=== PATIENT | male | born 1940 | race Caucasian/White ===

== ENCOUNTER 2018-10-14 10:23 | Day surgery (SDC) | payer MEDICARE, OTHER ==
[~2018-10-14 10:23] MED LIST: SEVOFLURANE 15 MIN
[2018-10-14] MEDS ORDERED: LACTATED RINGER'S 1,000 ML IV (12:30)
[2018-10-14 12:34] LABS: ADD MAN DIFF? NO
[2018-10-14 12:37] LABS: WHITE BLOOD COUNT 6.6 10^3/ul (4.8-10.8)
[2018-10-14 12:37] LABS: BASOPHIL # 0.1 10^3/ul (0.0-0.1); BASOPHILS % 0.8 % (0.0-2.0); EOSINOPHILS # 0.2 10^3/ul (0.0-0.5); EOSINOPHILS % 2.3 % (0.0-7.0); HEMOGLOBIN 14.7 g/dl (14.0-18.0); LYMPHOCYTES # 1.9 10^3/ul (0.8-2.9); LYMPHOCYTES % 28.3 % (15.0-51.0); MEAN CORPUSCULAR HEMOGLOBIN 29.9 pg (29.0-33.0); MEAN CORPUSCULAR HGB CONC 33.4 g/dl (32.0-37.0); MEAN CORPUSCULAR VOLUME 89.4 fl (82.0-101.0); MEAN PLATELET VOLUME 9.7 fl (7.4-10.4); MONOCYTE # 0.6 10^3/ul (0.3-0.9); MONOCYTES % 8.4 % (0.0-11.0); PLATELET COUNT 197 10^3/UL (140-415); RED BLOOD COUNT 4.92 10^6/ul (4.70-6.10)
[2018-10-14] MEDS: CIPROFLOXACIN 400MG/D5W 200 ML IVPB (12:48)
[2018-10-14] MEDS ORDERED: MIDAZOLAM 1 MG/ML 2 ML INJ (12:52)
[2018-10-14] MEDS ORDERED: FENTAnyl 50 MCG/ML VIAL (12:52)
[2018-10-14 12:57] LABS: INR 1.06; PARTIAL THROMBOPLASTIN TIME 29.2 Sec (23.0-35.0); PROTIME 13.9 Sec (11.9-14.9); PT RATIO 1.1
[2018-10-14 12:59] LABS: ANION GAP 5 (5-13); BLOOD UREA NITROGEN 16 mg/dl (7-20); CALCIUM 9.2 mg/dl (8.4-10.2); CARBON DIOXIDE 28 mmol/L (21-31); CHLORIDE 110 mmol/L (97-110); CREATININE 0.67 mg/dl (0.61-1.24); GLUCOSE 91 mg/dl (70-220); POTASSIUM 4.2 mmol/L (3.5-5.1); SODIUM 143 mmol/L (135-144)
[2018-10-14] MEDS ORDERED: CIPROFLOXACIN 400MG/D5W 200 ML (13:40)
[2018-10-14] MEDS ORDERED: ETOMIDATE 20 MG INJ (13:40)
[2018-10-14] MEDS ORDERED: LIDOCAINE 2% (SDV) 5 ML INJ (13:40)
[2018-10-14] MEDS ORDERED: LABETALOL HCL 20MG INJ IV (14:00)
[2018-10-14] MEDS ORDERED: HYDROCODONE/APAP (5/325) TAB PO (14:00)
[2018-10-14] MEDS ORDERED: ONDANSETRON 4 MG INJ IV (14:00)
[2018-10-14] MEDS ORDERED: hydrALAzine 20 MG INJ IV (14:00)
[2018-10-14] MEDS ORDERED: MEPERIDINE 25 MG INJ IV (14:00)
[2018-10-14] MEDS ORDERED: DIPHENHYDRAMINE 50 MG INJ IV (14:00)
[2018-10-14] MEDS ORDERED: METOCLOPRAMIDE 10 MG INJ IV (14:00)
[2018-10-14] MEDS ORDERED: HYDROmorphONE 1 MG/5 ML IV SYRINGE IV ×2 (14:00)
[2018-10-14] MEDS ORDERED: MIDAZOLAM 1 MG/ML 2 ML INJ IV (14:00)
[2018-10-14] MEDS ORDERED: FENTAnyl 50 MCG/ML VIAL IV (14:00)
== END 2018-10-14 15:30 | disposition home or self-care (01) ==
LOC: SDS 10:23
DX: N20.0 Calculus of kidney (principal); N40.0 Benign prostatic hyperplasia without lower urinary tract symptoms; I10 Essential (primary) hypertension; E78.5 Hyperlipidemia, unspecified; J44.9 Chronic obstructive pulmonary disease, unspecified
CPT/HCPCS: 52317; 80048; 85025; 85610; 85730; 87086; 88300